=== PATIENT | male | born 1965 | race Caucasian/White ===

== ENCOUNTER 2021-10-10 13:13 | Day surgery (SDC) | payer OTHER ==
[2021-10-10] MEDS ORDERED: Depo-Medrol 40 MG/ML IM ONE (13:14)
[2021-10-10] MEDS ORDERED: Sodium Chloride 0.9(Preservative Free) 10 ML IJ ONE (13:14)
[2021-10-10] MEDS ORDERED: Lactated Ringers 1,000 ML IV ONE (14:41)
[2021-10-10] MEDS ORDERED: DIPRIVAN 200 MG/20 ML IV ONE ×2 (14:49→14:50)
[2021-10-10] MEDS ORDERED: MORPHINE SULFATE 2 MG INJ ONE (15:03)
--- NOTE | 2021-10-10 16:33 | XRAY ---
Indication: Right L3-L5 transforaminal VINNY. Intraoperative fluoroscopy provided for 19 seconds. 3 digital spot images submitted for interpretation demonstrates posterior needle tips projecting over the expected right L3 and L4 nerve roots. Small amount of contrast injected for needle tip placement. Correlate with intraoperative findings/report.
--- NOTE | 2021-10-10 16:43 | XRAY ---
19 seconds of fluoroscopy was used in surgery for a right L3-L5 transforaminal VINNY.
== END 2021-10-10 15:09 | disposition home or self-care (01) ==
LOC: SDC-PAIN 13:13
PROVIDERS: ATTEND Psychiatry & Neurology Pain Medicine
DX: M54.16 Radiculopathy, lumbar region (principal); Z79.899 Other long term (current) drug therapy
CPT/HCPCS: 64483; 64484; 72100; 77003; J1030; J2270; J2704; Q9966